=== PATIENT | female | born 1980 ===

== ENCOUNTER 2018-03-22 17:15 | Emergency (ER) | payer OTHER ==
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
[2018-03-22 17:53] VITALS: BP 128/86; PULSE 98; RESP 20; TEMP 99.4; O2SAT 99
== END 2018-03-22 17:59 | disposition home or self-care (01) ==
LOC: C.ER 17:15
DX: S20.212A Contusion of left front wall of thorax, initial encounter (principal); V49.40XA Driver injured in collision with unspecified motor vehicles in traffic accident, initial encounter